=== PATIENT | female | born 1965 | race American Indian/Alaskan Native ===

== ENCOUNTER 2017-05-15 14:54 | Emergency (ER) | payer SELFPAY ==
[2017-05-15 15:08] VITALS: BP 145/81
[2017-05-15] MEDS ORDERED: BOOSTRIX IM ONE (19:55)
[2017-05-15] MEDS ORDERED: ANTIBIOTIC OINT TP ONE (19:55)
[2017-05-15] MEDS ORDERED: TYLENOL PO ONE (19:55)
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
--- NOTE | 2017-05-15 21:33 | XRay Report ---
FINAL REPORT EXAM: XR KNEE 3V LT HISTORY: fall pain TECHNIQUE: Left knee three views PRIORS: None. FINDINGS: There is moderate tricompartmental joint space narrowing greatest at patellofemoral joint space. Superior and inferior patellar osteophytes are seen. Marginal tibial and femoral osteophytes are present. No acute fracture is identified. No dislocation seen. 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
== END 2017-05-15 22:25 | disposition home or self-care (01) ==
LOC: ED 14:54
DX: S00.81XA Abrasion of other part of head, initial encounter (principal); S80.212A Abrasion, left knee, initial encounter; M54.2 Cervicalgia; R21 Rash and other nonspecific skin eruption; I10 Essential (primary) hypertension; M19.90 Unspecified osteoarthritis, unspecified site; E78.00 Pure hypercholesterolemia, unspecified; Z86.73 Personal history of transient ischemic attack (TIA), and cerebral infarction without residual deficits; Z90.710 Acquired absence of both cervix and uterus; W01.0XXA Fall on same level from slipping, tripping and stumbling without subsequent striking against object, initial encounter; Y93.89 Activity, other specified; Y99.8 Other external cause status; Y92.89 Other specified places as the place of occurrence of the external cause
CPT/HCPCS: 70450; 90471; 90715

== ENCOUNTER 2018-06-10 11:36 | Emergency (ER) | payer MEDICAID, OTHER ==
--- NOTE | 2018-06-10 11:41 | Emergency Department Report ---
Stated Complaint: LFT SIDE PAIN - HPI History of Present Illness: left neck pain VSS MSE completed MSE screening note: Focused history and physical exam performed. Due to findings the following was ordered: ED Disposition for MSE Condition: Stable
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
[2018-06-10 12:21] VITALS: BP 149/81
== END 2018-06-10 12:18 | disposition home or self-care (01) ==
LOC: ED 11:36
DX: M54.2 Cervicalgia (principal); I16.0 Hypertensive urgency; I10 Essential (primary) hypertension; M19.90 Unspecified osteoarthritis, unspecified site; Z76.0 Encounter for issue of repeat prescription; Z86.73 Personal history of transient ischemic attack (TIA), and cerebral infarction without residual deficits; Z90.710 Acquired absence of both cervix and uterus

== ENCOUNTER 2019-04-01 16:45 | Emergency (ER) | payer MEDICARE ==
--- NOTE | 2019-04-01 21:05 | Cat Scan Report ---
CT HEAD WITHOUT CONTRAST INDICATION / CLINICAL INFORMATION: HEADACHE. History of stroke in October 2017 TECHNIQUE: All CT scans at this location are performed using CT dose reduction for ALARA by means of automated e xposure control. COMPARISON: None available. FINDINGS: HEMORRHAGE: None. EXTRA-AXIAL SPACES: Normal in size and morphology for the patient's age. VENTRICULAR SYSTEM: Mild dilation of the left frontal horn is unchanged. CEREBRAL PARENCHYMA: Left periventricular hypodensity represents old ischemic insult. No acute territ orial infarct. MIDLINE SHIFT OR HERNIATION: None. CEREBELLUM / BRAINSTEM: No significant abnormality. ORBITS: Normal as visualized. SOFT TISSUES of HEAD: No significant abnormality. CALVARIUM: No significant abnormality. PARANASAL SINUSES / MASTOID AIR CELLS: Normal as visualized. ADDITIONAL FINDINGS: None. IMPRESSION: 1. No acute intracranial abnormality. 2. No significant change. Signer Name: Salvador Ambrose MD Signed: 04/01/2019 9:00 PM Workstation Name: [id number]
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
[2019-04-01 21:58] VITALS: BP 145/89
== END 2019-04-01 22:06 | disposition home or self-care (01) ==
LOC: ED 16:45
DX: G44.209 Tension-type headache, unspecified, not intractable (principal); I10 Essential (primary) hypertension; M19.90 Unspecified osteoarthritis, unspecified site; Z86.73 Personal history of transient ischemic attack (TIA), and cerebral infarction without residual deficits; Z90.710 Acquired absence of both cervix and uterus; Z79.899 Other long term (current) drug therapy; Z98.890 Other specified postprocedural states
CPT/HCPCS: 70450

== ENCOUNTER 2020-10-27 16:03 | Outpatient (CLI) | payer MEDICARE ==
[2020-10-27 16:42] LABS: Basophils # (Auto) 0.1 K/mm3 (0.0-0.1); Eosinophils # (Auto) 0.6 K/mm3 (0.0-0.4); Eosinophils % (Auto) 9.2 % (0.0-4.3); Hematocrit 39.6 % (30.3-42.9); Hemoglobin 13.2 gm/dl (10.1-14.3); Lymphocytes # (Auto) 2.5 K/mm3 (1.2-5.4); Lymphocytes % (Auto) 36.5 % (13.4-35.0); Mean Corpuscular HGB Conc 33 % (30-34); Mean Corpuscular Volume 79 fl (79-97); Monocytes # (Auto) 0.5 K/mm3 (0.0-0.8); Monocytes % (Auto) 7.3 % (0.0-7.3); Platelet Count 254 K/mm3 (140-440); Red Blood Count 5.03 M/mm3 (3.65-5.03); Red Cell Distribution Width 14.7 % (13.2-15.2)
[2020-10-27 20:04] LABS: Alanine Aminotransferase 23 units/L (7-56); Albumin 4.1 g/dL (3.9-5); BUN/Creatinine Ratio 17; Blood Urea Nitrogen 10 mg/dL (7-17); Hemolysis Index 8
[2020-10-28 01:07] LABS: Chol/HDL Ratio 2.66 %; HDL Cholesterol 53 mg/dL (40-59); Iron 42 ug/dL (37-170); LDL Cholesterol,Direct 71 mg/dL (50-130); Total Iron Binding Capacity 303 mcg/dL (250-450)
[2020-10-31 10:29] LABS: Vitamin D, 25-OH, D2 7 ng/mL
== END 2020-10-27 16:04 | disposition home or self-care (01) ==
LOC: LAB 16:03
PROVIDERS: ATTEND Internal Medicine
DX: E11.9 Type 2 diabetes mellitus without complications (principal); I10 Essential (primary) hypertension; M19.90 Unspecified osteoarthritis, unspecified site; Z79.899 Other long term (current) drug therapy; Z98.890 Other specified postprocedural states
CPT/HCPCS: 36415; 80053; 80061; 82306; 82728; 83036; 83550; 84439; 84443; 85025